=== PATIENT | female | born 1935 | race Caucasian/White ===

== ENCOUNTER 2017-05-09 10:04 | Outpatient (CLI) | payer OTHER ==
[~2017-05-09] VITALS: Ht 152.4 cm; Wt 61.7 kg
== END 2017-05-09 10:15 | disposition home or self-care (01) ==
LOC: OFIC 805 10:04
DX: H93.12 Tinnitus, left ear (principal); H81.12 Benign paroxysmal vertigo, left ear; R42 Dizziness and giddiness; H90.3 Sensorineural hearing loss, bilateral

== ENCOUNTER 2017-09-05 09:19 | Outpatient (CLI) | payer OTHER ==
[~2017-09-05] VITALS: Ht 152.4 cm; Wt 61.7 kg
== END 2017-09-05 09:40 | disposition home or self-care (01) ==
LOC: OFIC 805 09:19
DX: H90.3 Sensorineural hearing loss, bilateral (principal); H93.12 Tinnitus, left ear

== ENCOUNTER 2018-06-26 09:17 | Outpatient (CLI) | payer OTHER ==
[~2018-06-26] VITALS: Ht 152.4 cm; Wt 61.7 kg
== END 2018-06-26 09:35 | disposition home or self-care (01) ==
LOC: OFIC 805 09:17
DX: H93.12 Tinnitus, left ear (principal); R42 Dizziness and giddiness; H90.3 Sensorineural hearing loss, bilateral; H81.12 Benign paroxysmal vertigo, left ear; H81.02 Meniere's disease, left ear